=== PATIENT | female | born 1940 | race Caucasian/White ===

== ENCOUNTER 2016-07-16 11:29 | Emergency (ER) | payer OTHER ==
[~2016-07-16] VITALS: Wt 60.0 kg
--- NOTE | 2016-07-16 12:50 | ERD ---
ER Documentation Chief Complaint Date/Time DATE: 07/16/16 TIME: 12:46 Chief Complaint MECHANICAL FALL WITH L ARM PAIN HPI 75-year-old otherwise healthy female presents to the emergency department with complaints of right shoulder immobility after sustaining a mechanical fall in the parking lot 3 hours ago. Patient states she tripped and fell landing on the side of her arm and heard a "pop ". Patient denies any head trauma or loss of consciousness. Patient denies any pain at this time states she has a mild ache. Patient notes pain is exacerbated by attempting to move her arm at the shoulder joint. Patient denies any injury to her wrists, knees, elbows bilaterally. She has not taken anything for pain this far. ROS All systems reviewed and are negative except as per history of present illness. PMhx/Soc Medical and Surgical Hx: pt denies Medical Hx, pt denies Surgical Hx Hx Alcohol Use: Yes Hx Substance Use: No Hx Tobacco Use: No Smoking Status: Never smoker Physical Exam Vitals Vital Signs Date Time Temp Pulse Resp B/P Pulse Ox O2 Delivery O2 Flow Rate FiO2 07/16/16 11:36 98.0 103 16 155/67 99 Physical Exam Const: Well-developed, nontoxic-appearing, well-hydrated, in no acute distress Head: Atraumatic Eyes: Normal Conjunctiva ENT: Normal External Ears, Nose and Mouth. Neck: Full range of motion..~ No meningismus. Resp: Clear to auscultation bilaterally Cardio: Regular rate and rhythm, no murmurs Abd: Soft, non tender, non distended. Normal bowel sounds Skin: No petechiae or rashes Back: No midline or flank tenderness Ext: Mild swelling noted around anterior right shoulder joint. No tenderness to palpation, no erythema or ecchymosis. Limited active and passive range of motion flexion, extension and abduction. Full range of motion at elbow and wrist joints bilaterally. Median, radial, ulnar motor function intact bilaterally. 2 point discrimination noted along the radial and ulnar aspects of all 5 digits on the right upper extremity. Radial pulses 2+ equal and bilateral. No abrasion or laceration noted. No cyanosis, or edema Neur: Awake and alert Psych: Normal Mood and Affect Procedures/MDM PROCEDURE: CR right shoulder CLINICAL INDICATION: Shoulder pain TECHNIQUE: 3 views performed COMPARISON: No comparison available. FINDINGS: There is diffuse osteopenia. There is an acute comminuted nondisplaced surgical neck fracture. .The glenohumeral and acromioclavicular joints are unremarkable. The soft tissues are unremarkable. IMPRESSION: Diffuse osteopenia. Acute comminuted nondisplaced surgical neck fracture RPTAT: [facility] .Leonard Gutierrez MD, MD Date Time Electronically viewed and signed by .Leonard Gutierrez MD, MD on 07/16/2016 13:14 .B/ CC: PAPO THAO PA-C 75-year-old female presents to the emergency department for immobility of her right upper extremity at the shoulder joint following a mechanical fall 3 hours ago. Patient placed in right upper extremity sling. Based on patient's history of present illness and physical examination the decision was made to discharge. The patient was re-evaluated after ED treatment and stabilizing measures, and symptoms have improved. There is no evidence of life threatening injuries or illnesses at this time. On re-examination, patient resting in no distress, stable vital signs, reports feeling better and safe for discharge with outpatient follow up with PMD in 1-2 days. I explained to the patient the importance of following up with an rehabilitation specialist to better manage her fracture. patient given return precautions. Patient to continue Tylenol, Motrin and [place] for pain as needed. PAPO THAO PA-C Jul 16, 2016 12:50
--- NOTE | 2016-07-16 13:15 | RADRPT ---
PROCEDURE: CR right shoulder CLINICAL INDICATION: Shoulder pain TECHNIQUE: 3 views performed COMPARISON: No comparison available. FINDINGS: There is diffuse osteopenia. There is an acute comminuted nondisplaced surgical neck fracture. .The glenohumeral and acromioclavicular joints are unremarkable. The soft tissues are unremarkable. IMPRESSION: Diffuse osteopenia. Acute comminuted nondisplaced surgical neck fracture RPTAT: HG[facility] .Leonard Gutierrez MD, MD Date Time Electronically viewed and signed by .Leonard Gutierrez MD, on 07/16/2016 13:14 .B/
[2016-07-16] MEDS ORDERED: IBUP-1542 PO (13:28)
[2016-07-16] MEDS ORDERED: HYDR-906 PO (13:28)
== END 2016-07-16 14:21 | disposition home or self-care (01) ==
LOC: FTE 11:29
DX: S42.291A Other displaced fracture of upper end of right humerus, initial encounter for closed fracture (principal); W01.10XA Fall on same level from slipping, tripping and stumbling with subsequent striking against unspecified object, initial encounter; Y92.481 Parking lot as the place of occurrence of the external cause

== ENCOUNTER 2016-07-21 22:34 | Emergency (ER) | payer OTHER ==
[~2016-07-21] VITALS: Ht 145.4 cm; Wt 60.0 kg
[~2016-07-21 22:34] MED LIST: HYDR-906 PO; IBUP-1542 PO
[2016-07-21 23:20] VITALS: Ht 145.4 cm; Wt 60.0 kg
--- NOTE | 2016-07-22 01:16 | ERD ---
ER Documentation Chief Complaint Date/Time DATE: 07/22/16 TIME: 01:10 Chief Complaint pt reports she fell when trying to get out of wheel chair HPI 75-year-old female presents to emergency department for forehead contusion and right shoulder pain after tripping and falling out of the wheelchair. Patient was trying to get up the wheelchair to answer her phone, she tripped and landed in the facial area forehead area and the right shoulder, described the pain as throbbing pain, 6/10 scale, worse upon movement of the shoulder touching the forehead area. Patient denies any loss of consciousness, vomiting. Patient denies any dizziness. Patient denies any chest pain. Patient denies any shortness breath. Patient denies any numbness or tingling. Patient denies any deformity. She was accompanied by a neighbor ROS All systems reviewed and are negative except as per history of present illness. Medications Home Meds Active Scripts Tramadol HCl (Tramadol HCl) 50 Mg Tablet, 50 MG PO Q6 Y for PAIN, #20 TAB Prov:JESSICA ROLON NP 07/22/16 Acetaminophen* (Tylophen*) 500 Mg Capsule, 1 CAP PO Q6H Y for PAIN AND OR ELEVATED TEMP, #20 CAP Prov:JESSICA ROLON [employer] 07/22/16 Ibuprofen* (Motrin*) 600 Mg Tab, 600 MG PO Q6, #30 TAB Prov:PAPO THAO PA-C 07/16/16 Hydrocodone/Acetaminophen ([place] 5-325 Tablet) 1 Each Tablet, 1 TAB PO Q6H Y for PAIN, #7 TAB Prov:PAPO THAO PA-C 07/16/16 Allergies Allergies: Coded Allergies: No Known Drug Allergies (Verified Allergy, Unknown, 07/22/16) PMhx/Soc History of Surgery: Yes (HYSTERECTOMY) Hx Cardiac Disorders: Yes (HTN) Hx Alcohol Use: No Hx Substance Use: No Hx Tobacco Use: No Smoking Status: Never smoker FmHx Family History: No coronary disease, No diabetes, No other Physical Exam Vitals Vital Signs Date Time Temp Pulse Resp B/P Pulse Ox O2 Delivery O2 Flow Rate FiO2 07/21/16 23:20 98.1 65 18 192/75 95 Physical Exam GENERAL: The patient is well developed and appropriate for usual state of health, in no apparent distress. CHEST: Clear to auscultation bilaterally. There are no rales, wheezes or rhonchi. HEART: Regular rate and rhythm. No murmurs, clicks, rubs or gallops. No S3 or S4. ABDOMEN: Soft, nontender and nondistended. Good bowel sounds. No rebound or guarding. No gross peritonitis. No gross organomegaly or masses. No Jc sign or McBurney point tenderness. BACK: No midline or flank tenderness. EXTREMITIES: Limitation movement of the right shoulder because of pain, tenderness on palpation on the anterior aspect of the right shoulder. Equal pulses bilaterally. There is no peripheral clubbing, cyanosis or edema. No focal swelling or erythema. Full range of motion. Grossly neurovascularly intact. NEURO: Alert and oriented. Cranial nerves 2-12 intact. Motor strength in all 4 extremities with 5/5 strength. Sensation grossly intact. Normal speech and gait. SKIN: Forehead contusion and ecchymosis noted, tender on palpation with abrasion noted. There is no apparent rash or petechia. The skin is warm and dry. HEMATOLOGIC AND LYMPHATIC: There is no evidence of excessive bruising or lymphedema. No gross cervical, axillary, or inguinal lymphadenopathy. Results 24 hrs PROCEDURE: CT head, without contrast. CLINICAL INDICATION: Head injury with bruising. TECHNIQUE: Noncontrast CT examination of the head, with axial, sagittal and coronal reformatted images. Automated dose exposure control was employed. CTDI: 45.01 mGy and DLP: 720.23 mGy-cm. COMPARISON: None. FINDINGS: Note acute hemorrhage. Subarachnoid spaces are substantially preserved and symmetric. Ventricles are unremarkable. No mass effect. Mcallister-white matter distinction is preserved without evident decreased attenuation to suggest acute or recent infarct. Sinuses and osseous structures are unremarkable. IMPRESSION: No acute process in the head. RPTAT: [facility] Physician Moy Date Time Electronically viewed and signed by Physician Moy on 07/22/2016 02:22 RS/ CC: JESSICA ROLON NP PROCEDURE: XR right shoulder. CLINICAL INDICATION: Right shoulder pain. TECHNIQUE: 4 views of the right shoulder were performed. COMPARISON: 07/16/2016. FINDINGS: New mild displacement previously seen fracture at the surgical neck of the right humerus. No new fracture. Cardiomegaly and atherosclerotic calcifications in the thoracic aorta. IMPRESSION: New mild displacement of previously seen fracture at the surgical neck of the right humerus. RPTAT: [facility] Physician Moy Date Time Electronically viewed and signed by Fredi Cruz Physician on 07/22/2016 02:07 RS/ CC: JESSICA ROLON NP After receiving patients xray report, a shoulder immobilizer was applied on the patients right shoulder. After application of the splint, patient has intact sensation and circulation on distal area of the affected joint. Patient does not complain of numbness or tingling after application of the splint. Patient tolerated procedure well. I discussed this case with my attending physician, Dr. Hicks, recommended sending the patient home with a neighbor, to follow-up with orthopedics surgeon , patient is a ready waiting for an appointment, patient was advised to discuss case with primary care doctor since she has on and twice in 2 weeks, at this time, patient is with neighbor, will go home with assistance. Procedures/MDM Medical Decision Making: Patient's forehead swelling most likely consistent with a head contusion. There is low suspicion for neurological emergencies at this time since patients neurologic exam is normal. Patient did not have any altered level consciousness, vomiting, changes in balance or memory after incident. Patients CT scan of the head does not show any neurological emergencies at this time. Patient's pain is most likely consistent with a fracture seen in the right humerus which moved from the fall. There is no suspicion for neurovascular compromise. Patient has intact sensation and circulation of the affected extremity. There is low suspicion for septic arthritis. Patient does not have any fever. Radiology exams of the affected area does not show any dislocation. Disposition: Home. Patient is given prescription for Tylenol for pain, tramadol for severe pain. Patient was advised to elevate the affected area and apply ice on affected area. Patient was advised that if symptoms are worse, numbness, tingling, high fever, unable to move joint, worsening symptoms, to return to emergency department immediately. Otherwise, patient is advised to follow up with the primary care doctor in 5-7 days for reevaluation of symptoms. Departure Diagnosis: Primary Impression: Head contusion Encounter type: initial encounter Contusion of head detail: other part of head Qualified Code: S00.83XA - Contusion of other part of head, initial encounter Additional Impression: Right humeral fracture Encounter type: initial encounter Humerus Location: surgical neck Fracture type: closed Fracture morphology: unspecified fracture morphology Fracture alignment: displaced Qualified Code: S42.211A - Closed displaced fracture of surgical neck of right humerus, unspecified fracture morphology, initial encounter Condition: Stable Patient Instructions: Fracture, Shoulder, Scalp Contusion, No Wake Up Additional Instructions: Patient is given prescription for Tylenol for pain, tramadol for severe pain. Patient was advised to elevate the affected area and apply ice on affected area. Patient was advised that if symptoms are worse, numbness, tingling, high fever, unable to move joint, worsening symptoms, to return to emergency department immediately. Otherwise, patient is advised to follow up with the primary care doctor in 5-7 days for reevaluation of symptoms. JESSICA ROLON NP Jul 22, 2016 01:16
--- NOTE | 2016-07-22 02:08 | RADRPT ---
PROCEDURE: XR right shoulder. CLINICAL INDICATION: Right shoulder pain. TECHNIQUE: 4 views of the right shoulder were performed. COMPARISON: 07/16/2016. FINDINGS: New mild displacement previously seen fracture at the surgical neck of the right humerus. No new fra cture. Cardiomegaly and atherosclerotic calcifications in the thoracic aorta. IMPRESSION: New mild displacement of previously seen fracture at the surgical neck of the right humerus. RPTAT: [facility] Physician Moy Date Time Electronically viewed and signed by Fredi Cruz Physician on 07/22/2016 02:07 RS/
--- NOTE | 2016-07-22 02:22 | RADRPT ---
PROCEDURE: CT head, without contrast. CLINICAL INDICATION: Head injury with bruising. TECHNIQUE: Noncontrast CT examination of the head, with axial, sagittal and coronal reformatted im ages. Automated dose exposure control was employed. CTDI: 45.01 mGy and DLP: 720.23 mGy-cm. COMPARISON: None. FINDINGS: Note acute hemorrhage. Subarachnoid spaces are substantially preserved and symmetric. Ventricles are unremarkable. No mass effect. Mcallister-white matter distinction is preserved without evident decreased attenuation t o suggest acute or recent infarct. Sinuses and osseous structures are unremarkable. IMPRESSION: No acute process in the head. RPTAT: [facility] Physician Moy Date Time Electronically viewed and signed by Physician Moy on 07/22/2016 02:22 RS/
[2016-07-22] MEDS ORDERED: TRAM50TA2 PO (02:40)
[2016-07-22] MEDS ORDERED: ACET500C5 PO (02:40)
[2016-07-22 03:22] VITALS: BP 184/77; PULSE 84; RESP 18
== END 2016-07-22 03:23 | disposition home or self-care (01) ==
LOC: FTE 22:34
DX: S00.83XA Contusion of other part of head, initial encounter (principal); S42.211A Unspecified displaced fracture of surgical neck of right humerus, initial encounter for closed fracture; I10 Essential (primary) hypertension; W05.0XXA Fall from non-moving wheelchair, initial encounter; Y92.9 Unspecified place or not applicable
CPT/HCPCS: 70450